=== PATIENT | male | born 1945 | race Two or more races ===

== ENCOUNTER 2021-01-05 20:49 | Emergency (ER) | payer MEDICARE, OTHER ==
[~2021-01-05] VITALS: Ht 170.2 cm; Wt 63.5 kg
[2021-01-05] MEDS ORDERED: METFORMIN HCL850 M1 ORAL (20:56)
[2021-01-05] MEDS ORDERED: JANUVIA100 MG ORAL (20:57)
[2021-01-05] MEDS ORDERED: HYDROCHLOROTHIA25 MG ORAL (20:57)
[2021-01-05] MEDS ORDERED: jardiance ORAL (20:58)
[2021-01-05] MEDS ORDERED: ASPIRIN81 MG ORAL (20:59)
--- NOTE | 2021-01-05 21:00 | NUR ---
pt aox3. in tx rm 1. pt c/o bilateral lower leg swelling since yesterday. denies any pain. pt lung sounds clear. respiration non labored. abdomen soft non distended. skin warm and dry. pt moving all extremities. v/s stable. pt in no distress. 18g iv established to lac. labs drawn and collected to lab. ekg done and given to
--- NOTE | 2021-01-05 21:13 | Emergency Room Report ---
History of Present Illness General Chief Complaint: General Complaint Source: Patient Present Illness HPI Patient is a 75-year-old male presents for increased bilateral leg swelling. Gradual onset of symptoms with the past 2 days. Prior history of diabetes as well as hypertension and prostate disease. Had recently had first coronavirus vaccine. Denies any chest discomfort or shortness of breath. Patient takes medications for diabetes as well as hypertension. Denies any shortness of breath. Denies any change in urination. Allergies: Coded Allergies: No Known Allergies (Unverified , 01/05/21) COVID-19 Screening Contact w/high risk pt: No Experienced COVID-19 symptoms?: No COVID-19 Testing performed HAND UPPER AND BOTTOM LACER: No Patient History Past Medical History: see triage record Reviewed Nursing Documentation: PMH: Agreed; PSxH: Agreed Nursing Documentation-PMH Past Medical History: No History, Except For Hx Hypertension: Yes Hx Diabetes: Yes Review of Systems All Other Systems: negative except mentioned in HPI Physical Exam Sp02 EP Interpretation: reviewed, normal General Appearance: normal inspection, well appearing, no apparent distress, alert, GCS 15, Chronically Ill Head: atraumatic ENT: normal ENT inspection, hearing grossly normal, normal voice Neck: normal inspection, full range of motion, supple, no bony tend Respiratory: normal inspection, lungs clear, normal breath sounds, no res piratory distress, no retraction, no wheezing Cardiovascular #1: regular rate, rhythm, edema Gastrointestinal: normal inspection, normal bowel sounds, non tender, soft, no guarding, no hernia Genitourinary: no CVA tenderness Musculoskeletal: normal inspection, back normal, normal range of motion Neurologic: alert, motor strength/tone normal, sales planning analyst III-XII nml as tested, oriented x3, responsive, speech normal, normal inspection Psychiatric: normal inspection, judgement/insight normal, mood/affect normal Skin: no rash Medical Decision Making Diagnostic Impression: Primary Impression: Metastatic cancer Additional Impressions: Urinary tract infection Fluid overload ER Course Presents for increased leg swelling. Differential diagnosis include was not limited to congestive failure, allergic reaction, fluid overload among others. Because of complexity of patient's case laboratory tests and imaging studies were ordered. EKG interpreted by me showed what appears to be normal sinus rhythm with multiple PACs. No acute ST or T wave changes were noted.Patient was given IV antibiotics. Travis catheter was placed. CT the abdomen pelvis read by radiology showed distended bladder as well as prostatomegaly. Retroperitoneal lymphadenopathy as well as diffuse sclerotic metastatic disease.Catheter was placed due to urinary retention with large amount of urine output. Travis catheter was placed and patient was discharged with leg bag. He was advised to follow-up with urology for further work-up of urinary retention. Patient and family members were offered admission for further management and they declined. This medical record is generated with [employer] testing analyst software. There may be some testing analyst discrepancies related to use of this software Labs Test 01/05/21 21:13 White Blood Count 6.1 K/UL (4.8-10.8) Red Blood Count 3.19 M/UL (4.70-6.10) Hemoglobin 9.2 G/DL (14.2-18.0) Hematocrit 28.6 % (42.0-52.0) Mean Corpuscular Volume 90 FL (80-99) Mean Corpuscular Hemoglobin 28.9 PG (27.0-31.0) Mean Corpuscular Hemoglobin Concent 32.3 G/DL (32.0-36.0) Red Cell Distribution Width 21.9 % (11.6-14.8) Platelet Count 357 K/UL (150-450) Mean Platelet Volume 5.2 FL (6.5-10.1) Neutrophils (%) (Auto) 66.9 % (45.0-75.0) Lymphocytes (%) (Auto) 24.1 % (20.0-45.0) Monocytes (%) (Auto) 7.8 % (1.0-10.0) Eosinophils (%) (Auto) 0.1 % (0.0-3.0) Basophils (%) (Auto) 1.1 % (0.0-2.0) Urine Color Pale yellow Urine Appearance Clear Urine pH 5 (4.5-8.0) Urine Specific [place] 1.010 (1.005-1.035) Urine Protein Negative (NEGATIVE) Urine Glucose (UA) 4+ (NEGATIVE) Urine Ketones Negative (NEGATIVE) Urine Blood 1+ (NEGATIVE) Urine Nitrite Negative (NEGATIVE) Urine Bilirubin Negative (NEGATIVE) Urine Urobilinogen Normal MG/DL (0.0-1.0) Urine Leukocyte Esterase 2+ (NEGATIVE) Urine RBC 0-2 /HPF (0 - 0) Urine WBC 15-20 /HPF (0 - 0) Urine Squamous Epithelial Cells None /LPF (NONE/OCC) Urine Bacteria Occasional /HPF (NONE) Sodium Level 137 MMOL/L (136-145) Potassium Level 4.2 MMOL/L (3.5-5.1) Chloride Level 100 MMOL/L (98-107) Carbon Dioxide Level 26 MMOL/L (21-32) Anion Gap 11 mmol/L (5-15) Blood Urea Nitrogen 36 mg/dL (7-18) Creatinine 1.2 MG/DL (0.55-1.30) Estimat Glomerular Filtration Rate 58.7 mL/min (>60) Glucose Level 168 MG/DL (74-106) Calcium Level 9.3 MG/DL (8.5-10.1) Total Bilirubin 0.4 MG/DL (0.2-1.0) Aspartate Amino Transf (AST/SGOT) 30 U/L (15-37) Alanine Aminotransferase (ALT/SGPT) 16 U/L (12-78) Alkaline Phosphatase 987 U/L (46-116) Troponin I 0.016 ng/mL (0.000-0.056) Pro-B-Type Natriuretic Peptide 1240 pg/mL (0-125) Total Protein 7.3 G/DL (6.4-8.2) Albumin 3.6 G/DL (3.4-5.0) Globulin 3.7 g/dL Albumin/Globulin Ratio 1.0 (1.0-2.7) EKG Diagnostic Results Rate: normal Rhythm: NSR ST Segments: no acute changes Status: improved Disposition: HOME, SELF-CARE Condition: Stable Scripts Cephalexin* (KEFLEX*) 500 Mg Capsule 500 MG ORAL EVERY 6 HOURS, #28 CAP Prov: Chris Hatch MD 01/06/21 Chris Hatch MD Jan 05, 2021 21:13
--- NOTE | 2021-01-05 21:42 | Diagnostic Imaging Report ---
EXAM: XR Chest, 1 View CLINICAL HISTORY: SOB TECHNIQUE: Frontal view of the chest. COMPARISON: No relevant prior studies available. FINDINGS: Lungs: Mildly prominent interstitial lung markings, which may be accentuated due to low lung volumes and portable technique. Pleural space: Unremarkable. No pneumothorax. Heart: Unremarkable. No cardiomegaly. Mediastinum: Unremarkable. Bones/joints: Unremarkable. Vasculature: Atherosclerotic vascular disease. Tubes, lines and devices: Multiple overlying external lines. IMPRESSION: Lung the prominent interstitial lung markings. May be sequela of pulmonary edema versus artificially prominent due to low lung volumes and portable technique.
[2021-01-05 21:49] VITALS: BP 146/71
[2021-01-05 22:02] LABS: BASOPHILS % (AUTO) 1.1 % (0.0-2.0); EOSINOPHILS % (AUTO) 0.1 % (0.0-3.0); HEMATOCRIT 28.6 % (42.0-52.0); HEMOGLOBIN 9.2 G/DL (14.2-18.0); LYMPHOCYTES % (AUTO) 24.1 % (20.0-45.0); MEAN CORPUSCULAR VOLUME 90 FL (80-99); MONOCYTES % (AUTO) 7.8 % (1.0-10.0); NEUTROPHILS % (AUTO) 66.9 % (45.0-75.0); PLATELET COUNT 357 K/UL (150-450); RED BLOOD COUNT 3.19 M/UL (4.70-6.10); RED CELL DISTRIBUTION WIDTH 21.9 % (11.6-14.8); WHITE BLOOD COUNT 6.1 K/UL (4.8-10.8)
[2021-01-05 22:03] LABS: APPEARANCE,URINE CLEAR; BILIRUBIN, URINE NEGATIVE (NEGATIVE); COLOR,URINE PALE YELLOW; GLUCOSE, URINE (UA) 4+ (NEGATIVE); KETONES,URINE NEGATIVE (NEGATIVE); LEUKOCYTE ESTERASE ,URINE 2+ (NEGATIVE); NITRITE,URINE NEGATIVE (NEGATIVE); PH,URINE 5 (4.5-8.0); PROTEIN,URINE NEGATIVE (NEGATIVE); UROBILINOGEN,URINE NORMAL MG/DL (0.0-1.0)
[2021-01-05 22:07] LABS: CALCIUM 9.3 MG/DL (8.5-10.1); CREATININE 1.2 MG/DL (0.55-1.30); POTASSIUM 4.2 MMOL/L (3.5-5.1)
[2021-01-05 22:18] LABS: ALBUMIN 3.6 G/DL (3.4-5.0); BILIRUBIN,TOTAL 0.4 MG/DL (0.2-1.0)
[2021-01-05] MEDS ORDERED: cefTRIAXone 1 GM in NS 55 ML IVPB ONE (22:45)
--- NOTE | 2021-01-05 22:53 | NUR ---
pt medicated per dec. pt aox4. resting on the cart. v/s stable. pt in no distress. will continue to monitor pt
[2021-01-06] VITALS: BP 140/78
--- NOTE | 2021-01-06 00:38 | Diagnostic Imaging Report ---
EXAM: CT Abdomen and Pelvis Without Intravenous Contrast CLINICAL HISTORY: PAIN TECHNIQUE: Axial computed tomography images of the abdomen and pelvis without intravenous contrast. CTDI is 7.3 mGy and DLP is 405.4 mGy-cm. One or more of the following dose reduction techniques were used: automated exposure control, adjustment of the mA and/or kV according to patient size, use of iterative reconstruction technique. COMPARISON: No relevant prior studies available. FINDINGS: Lung bases: Atelectasis at the lung bases. Heart: Advanced coronary artery calcifications. ABDOMEN: Liver: Unremarkable. Gallbladder and bile ducts: Unremarkable. Pancreas: Unremarkable. Spleen: Unremarkable. Adrenals: Unremarkable. Kidneys and ureters: Mild bilateral hydroureteronephrosis. No obstructing stone. Stomach and bowel: Unremarkable. PELVIS: Appendix: No findings to suggest acute appendicitis. Bladder: Distended bladder. Reproductive: Mild prostatomegaly. ABDOMEN and PELVIS: Intraperitoneal space: Unremarkable. No free air. No significant fluid collection. Bones/joints: Diffuse sclerotic osseous metastatic disease. Soft tissues: Unremarkable. Vasculature: Unremarkable. Lymph nodes: Retroperitoneal adenopathy. IMPRESSION: 1. Distended bladder and mild hydroureteronephrosis. No obstructing stone. Findings consistent with outlet obstruction. 2. Mild prostatomegaly. 3. Diffuse sclerotic osseous metastatic disease. 4. Retroperitoneal adenopathy. 5. Advanced coronary artery calcifications.
[2021-01-06] MEDS ORDERED: Dyna-Hex 2% Top Sol 2oz TOPIC ONE (01:00)
--- NOTE | 2021-01-06 01:32 | NUR ---
[address]. 2000cc initial urine output
[2021-01-06 02:00] VITALS: BP 129/68
--- NOTE | 2021-01-06 02:02 | NUR ---
pt sleeping on the cart. easily arousable. v/s stable. pt in no distress. will continue to monitor pt
[2021-01-06] MEDS ORDERED: CEPHALEXIN500 MG ORAL (02:14)
[2021-01-06 04:53] VITALS: BP 134/69
--- NOTE | 2021-01-06 04:53 | NUR ---
pt awake and alert. no complaints at this time. v/s stable. pt in no distress. will continue to monitor pt
--- NOTE | 2021-01-06 06:30 | NUR ---
urine bag replaced to leg bag for pt dc home, pt and daughter given and understands discharge instructions. pt ambulatory out w cane.
== END 2021-01-06 07:13 | disposition home or self-care (01) ==
LOC: EMR 21:15 → CANBEDREQ 01-06 05:52 → EMR 01-06 07:13
DX: C79.51 Secondary malignant neoplasm of bone (principal); N39.0 Urinary tract infection, site not specified; E87.70 Fluid overload, unspecified; E11.9 Type 2 diabetes mellitus without complications; I10 Essential (primary) hypertension
CPT/HCPCS: 36415; 51702; 71045; 74176; 80053; 81003; 83880; 84484; 85025; 87086; 93005; 96365; 96375; 99284; J0696; J1940

== ENCOUNTER 2021-01-28 00:41 | Emergency (ER) | payer MEDICARE, OTHER ==
[~2021-01-28] VITALS: Ht 170.2 cm; Wt 63.5 kg
[~2021-01-28 00:41] MED LIST: ASPIRIN81 MG ORAL; CEPHALEXIN500 MG ORAL; HYDROCHLOROTHIA25 MG ORAL; JANUVIA100 MG ORAL; METFORMIN HCL850 M1 ORAL; jardiance ORAL
[2021-01-28 00:58] VITALS: BP 118/69
--- NOTE | 2021-01-28 00:58 | Emergency Room Report ---
History of Present Illness General Chief Complaint: To Be Triaged Present Illness HPI 75-year-old male here with dislodged Travis catheter. The patient was here approximately 3 weeks ago when he had a Travis catheter placed for urinary retention secondary to likely prostate cancer. He had an extensive work-up at that time and was offered admission but declined. Patient and his daughter at bedside and state that the Travis catheter dislodged last night. They are only requesting to have the catheter replaced. They have an appointment with urologist in 3 days. Denies headache, vision change, fevers, chills, chest pain, palpitation, shortness of breath, back pain, abdominal pain, nausea, vomiting, diarrhea, dysuria. Phone computer laboratory technician was used Allergies: Coded Allergies: No Known Allergies (Unverified , 01/05/21) COVID-19 Screening Contact w/high risk pt: No Experienced COVID-19 symptoms?: No Nursing Documentation-PMH Hx Hypertension: Yes Hx Diabetes: Yes Review of Systems All Other Systems: negative except mentioned in HPI Physical Exam Sp02 EP Interpretation: reviewed, normal General Appearance: no apparent distress, alert, non-toxic Head: normocephalic, atraumatic Eyes: bilateral eye normal inspection, bilateral eye PERRL ENT: hearing grossly normal, normal pharynx, no angioedema, normal voice Neck: full range of motion, supple/symm/no masses Respiratory: chest non-tender, lungs clear, normal breath sounds, speaking full sentences Cardiovascular #1: regular rate, rhythm, no edema Cardiovascular #2: 2+ carotid (R), 2+ carotid (L), 2+ radial (R), 2+ radial ( L), 2+ dorsalis pedis (R), 2+ dorsalis pedis (L) Gastrointestinal: normal bowel sounds, non tender, soft, non-distended, no guarding, no rebound Rectal: deferred Genitourinary: normal inspection, no CVA tenderness, other - Travis catheter in place with small amount of urine draining around the catheter Musculoskeletal: back normal, normal range of motion, gait/station normal, non- tender Neurologic: alert, motor strength/tone normal, oriented x3, sensory intact, responsive, speech normal Psychiatric: judgement/insight normal, memory normal, mood/affect normal, no suicidal/homicidal ideation Lymphatic: no adenopathy Medical Decision Making Diagnostic Impression: Primary Impression: Travis catheter problem ER Course 75-year-old male with likely metastatic prostate cancer here with Travis catheter dislodgment. Patient said that the Travis catheter that had been placed several weeks ago have been leaking urine. He has no other complaints at this time. He had a benign physical examination. The Travis catheter was replaced and was in proper working order. He have a follow-up appointment in 3 days with a specialist and were told importance of this follow-up appointment. They expressed understanding and were discharged. Remigio Draper M.D. Jan 28, 2021 00:58
--- NOTE | 2021-01-28 00:59 | NUR ---
Pt reports dislodged andrew catheter yesterday afternoon at approximately 1400 x11 hrs ago. Pt has no c/o pain at this time. Pt has Hx diabetes, HTN, incontinence.
--- NOTE | 2021-01-28 01:29 | NUR ---
Assessment of andrew catheter reveals detachment of andrew catheter from leg bag. Previous andrew catheter was removed by this RN. This RN replaced previous catheter with 16fr andrew catheter. Sterile technique used and 10ml saline was used to secure andrew catheter in place. Pt reports no c/o pain at this time. Patient has follow up urology appointment scheduled for this Wednesday, February 01, 2021. Otherwise, no SS of distress, neuro intact, respirations even and unlabored, no SS of respiratory distress, skin signs normal, OK to discharge per ED Bonny PATEL.
== END 2021-01-28 01:41 | disposition home or self-care (01) ==
LOC: EMR 00:52
DX: T83.028A Displacement of other urinary catheter, initial encounter (principal); X58.XXXA Exposure to other specified factors, initial encounter; Y92.9 Unspecified place or not applicable; E11.9 Type 2 diabetes mellitus without complications; I10 Essential (primary) hypertension
CPT/HCPCS: 51702; 99282